=== PATIENT | male | born 1960 | race Caucasian/White ===

== ENCOUNTER → 2018-05-23 | Outpatient (CLI) | payer MEDICARE, OTHER ==
[~2018-05-23] MED LIST: AMLO-512 PO; BENZ2TAB58 PO; DIVA500T52 PO; HALO50AM2 IM; OLAN5TAB2 PO
[2018-05-24 09:43] LABS: HEMOGLOBIN A1C 5.7 % (4.5-6.2)
[2018-05-24 09:56] LABS: CHOL/HDL RATIO 3.3 (4.2-7.3)
== END | disposition home or self-care (01) ==
LOC: LABMN 09:05
PROVIDERS: ATTEND Psychiatry & Neurology Psychiatry
DX: F20.0 Paranoid schizophrenia (principal); I10 Essential (primary) hypertension; J44.9 Chronic obstructive pulmonary disease, unspecified; F31.9 Bipolar disorder, unspecified; Z87.891 Personal history of nicotine dependence; Z72.89 Other problems related to lifestyle; Z79.899 Other long term (current) drug therapy
CPT/HCPCS: 82947; 83036

== ENCOUNTER → 2018-07-02 | Outpatient (CLI) | payer MEDICARE, OTHER | END | disposition home or self-care (01) | LOC: LABMN 13:16 | PROVIDERS: ATTEND Psychiatry & Neurology Psychiatry | DX: F20.9 Schizophrenia, unspecified (principal); Z79.899 Other long term (current) drug therapy | CPT/HCPCS: 83036 ==

== ENCOUNTER → 2019-01-16 | Outpatient (CLI) | payer MEDICARE, OTHER ==
[~2019-01-16] MED LIST changes: -AMLO-512 PO; +AMLO10TA7 PO
== END | disposition home or self-care (01) ==
LOC: LABMN 13:00
PROVIDERS: ATTEND Psychiatry & Neurology Psychiatry
DX: F20.9 Schizophrenia, unspecified (principal); I10 Essential (primary) hypertension
CPT/HCPCS: 80173

== ENCOUNTER 2022-03-02 21:49 | Inpatient (IN) | payer MEDICARE, MEDICAID ==
[~2022-03-02] VITALS: Ht 175.3 cm; Wt 73.9 kg
[~2022-03-02 21:49] MED LIST changes: +AMLO-258 PO; -AMLO10TA7 PO; +DIVA-80 PO; -DIVA500T52 PO; -OLAN5TAB2 PO; +OLAN5TAB52 PO
[2022-03-02 23:26] LABS: GLUCOMETER DEV NAME(LOC) POC.BV
[2022-03-03] MEDS ORDERED: ZOLPIDEM TARTRATE 10 MG TABLET PO PRN
[2022-03-03] MEDS ORDERED: LORazepam 2 MG TABLET PO PRN
[2022-03-03] MEDS ORDERED: QUEtiapine FUMARATE 100 MG TABLET PO PRN
[2022-03-03 00:25] VITALS: BP 128/78
[2022-03-03 07:02] LABS: BASOPHILS % (AUTO) 0.7 % (0.0-2.0); EOSINOPHILS % (AUTO) 4.9 % (1.0-6.0); HEMATOCRIT 40.2 % (41-53); HEMOGLOBIN 13.3 g/dL (13.5-17.5); LYMPHOCYTES # (AUTO) 1.4 K/uL (1.0-4.8); MEAN CORPUSCULAR HEMOGLOBIN 27.7 pg (26.0-34.0); MEAN CORPUSCULAR HGB CONC 33.1 G/dL (31.0-37.0); MEAN CORPUSCULAR VOLUME 84 fL (80-100); MONOCYTES # (AUTO) 0.5 K/uL (0.1-1.0); MONOCYTES % (AUTO) 9.3 % (2.0-9.0); NEUTROPHILS % (AUTO) 58.1 % (40.0-70.0); PLATELET COUNT (AUTO) 190 K/uL (150-450); RED BLOOD CELL COUNT(AUTO) 4.81 MIL/uL (4.50-5.90); RED CELL DISTRIBUTION WIDTH 17.4 % (11.5-14.5)
[2022-03-03 07:36] LABS: ALANINE AMINOTRANSFERASE 34 U/L (12-78); ALBUMIN 3.4 g/dL (3.4-5.0); ALKALINE PHOSPHATASE 66 U/L (46-116); ANION GAP 3 mmol/L (8-16); ASPARTATE AMINOTRANSFERASE 33 U/L (15-37); BILIRUBIN,TOTAL 0.8 mg/dL (0.1-1.0); CALCIUM, TOTAL 8.7 mg/dL (8.8-10.5); CARBON DIOXIDE 32 mmol/L (22-29); CHLORIDE 106 mmol/L (98-107); CHOL/HDL RATIO 2.1 (4.2-7.3); CHOLESTEROL 110 mg/dL (131-200); CREATININE 0.81 mg/dL (0.60-1.30); FREE T4 (FREE THYROXINE) 1.05 ng/dL (0.76-1.46); GLUCOSE,RANDOM 100 mg/dL (70-110); HDL CHOLESTEROL 52 mg/dL (40-60); LDL CHOL (CALC.) 51 mg/dL (0-130); POTASSIUM 3.4 mmol/L (3.5-5.1); SODIUM SERUM 141 mmol/L (136-145); THYROID STIMULATING HORMONE 1.83 uIU/mL (0.36-3.74); TOTAL PROTEIN, SERUM 6.3 g/dL (6.4-8.2); TRIGLYCERIDES 35 mg/dL (15-150); UREA NITROGEN, BLOOD 17 mg/dL (7-18)
[2022-03-03 07:40] LABS: GLOMERULAR FILTR. RATE CALC > 60 mL/min (>60)
[2022-03-03 07:42] LABS: HEMOGLOBIN A1C 6.1 % (3.8-5.6)
[2022-03-03 08:58] VITALS: BP 131/64
[2022-03-03] MEDS ORDERED: POTASSIUM CHLORIDE 20 MEQ ER TABLET PO ONE (13:45)
[2022-03-03 22:41] VITALS: BP 117/67
[2022-03-04 09:00] VITALS: BP 128/71
[2022-03-04 20:38] VITALS: BP 143/72
[2022-03-05 08:38] VITALS: BP 118/71
[2022-03-05] MEDS ORDERED: TUBERCULIN, PURIFIED PROTEIN DERIVATIVE 5 TU/0.1 ML SYRINGE ID ONE (10:00)
[2022-03-05] MEDS ORDERED: OLANZapine 5 MG RAPDIS TABLET PO PRN (10:00)
[2022-03-05] MEDS ORDERED: MAG HYDROX/AL HYDROX/SIMETH ES 30 ML SUSPENSION UDCUP PO PRN (10:00)
[2022-03-05] MEDS ORDERED: MAGNESIUM HYDROXIDE SUSPENSION 30 ML UDCUP PO PRN (10:00)
[2022-03-05] MEDS ORDERED: ACETAMINOPHEN 325 MG TABLET PO PRN (10:00)
[2022-03-05] MEDS ORDERED: GuaiFENesin/D-METHORPHAN [SUGAR-FREE] 200-20MG/10 ML SYRUP UDCUP PO PRN (10:00)
[2022-03-05] MEDS ORDERED: PROMETHAZINE HCL 25 MG TABLET PO PRN (10:00)
[2022-03-05] MEDS ORDERED: LOPERAMIDE HCL 2 MG CAPSULE PO PRN ×2 (10:00)
[2022-03-05] MEDS ORDERED: HydrOXYzine PAMOATE 50 MG CAPSULE PO PRN (10:00)
[2022-03-05] MEDS ORDERED: HALOPERIDOL DECANOATE 100 MG/ML VIAL IM ONE (10:00)
[2022-03-05] MEDS: BENZTROPINE MESYLATE 2 MG TABLET PO SCH ×2 (12:40→16:45)
[2022-03-05 16:12] VITALS: BP 114/61
[2022-03-05] MEDS: THIAMINE 100 MG TABLET PO SCH (16:45)
[2022-03-05 20:14] VITALS: BP 114/61
[2022-03-05] MEDS: MELATONIN 5 MG TABLET PO SCH (20:14)
[2022-03-05] MEDS: DIVALPROEX SODIUM 500 MG ER TABLET PO SCH (20:14)
[2022-03-05] MEDS ORDERED: OLANZapine 5 MG RAPDIS TABLET PO SCH (21:00)
[2022-03-06 05:23] VITALS: BP 124/62
[2022-03-06] MEDS: BENZTROPINE MESYLATE 2 MG TABLET PO SCH ×3 (08:50→16:26)
[2022-03-06] MEDS: FOLIC ACID 1 MG TABLET PO SCH (08:50)
[2022-03-06] MEDS: THIAMINE 100 MG TABLET PO SCH ×2 (08:50→16:26)
[2022-03-06] MEDS: NALTREXONE HCL 50 MG TABLET PO SCH (08:50)
[2022-03-06] MEDS: OMEGA-3/DHA/EPA/FISH OIL 1,000 MG CAPSULE PO SCH (08:50)
[2022-03-06 08:51] VITALS: BP 139/67
[2022-03-06 08:52] VITALS: BP 139/67
[2022-03-06] MEDS: DIVALPROEX SODIUM 500 MG ER TABLET PO SCH (20:09)
[2022-03-06] MEDS: MELATONIN 5 MG TABLET PO SCH (20:09)
[2022-03-06] MEDS: OLANZapine 10 MG RAPDIS TABLET PO SCH (20:10)
[2022-03-06 20:38] VITALS: BP 113/64
[2022-03-07 08:12] VITALS: BP 132/65
[2022-03-07 09:06] LABS: GLUCOMETER DEV NAME(LOC) POC.BV
[2022-03-07] MEDS: OMEGA-3/DHA/EPA/FISH OIL 1,000 MG CAPSULE PO SCH (09:15)
[2022-03-07] MEDS: NALTREXONE HCL 50 MG TABLET PO SCH (09:15)
[2022-03-07] MEDS: THIAMINE 100 MG TABLET PO SCH ×2 (09:15→16:22)
[2022-03-07] MEDS: FOLIC ACID 1 MG TABLET PO SCH (09:15)
[2022-03-07] MEDS: BENZTROPINE MESYLATE 2 MG TABLET PO SCH ×3 (09:15→16:22)
[2022-03-07 10:31] VITALS: BP 132/65
[2022-03-07] MEDS ORDERED: HALOPERIDOL DECANOATE 100 MG/ML VIAL IM ONE (14:45)
[2022-03-07] MEDS: DIVALPROEX SODIUM 500 MG ER TABLET PO SCH (20:13)
[2022-03-07] MEDS: MELATONIN 5 MG TABLET PO SCH (20:13)
[2022-03-07] MEDS: OLANZapine 10 MG RAPDIS TABLET PO SCH (20:14)
[2022-03-07 20:32] VITALS: BP 138/69
[2022-03-08 02:11] VITALS: BP 138/69
[2022-03-08 04:32] VITALS: BP 135/71
[2022-03-08 08:05] VITALS: BP 126/88
[2022-03-08 08:08] VITALS: BP 125/77
[2022-03-08] MEDS: OMEGA-3/DHA/EPA/FISH OIL 1,000 MG CAPSULE PO SCH (09:31)
[2022-03-08] MEDS: BENZTROPINE MESYLATE 2 MG TABLET PO SCH ×3 (09:31→16:23)
[2022-03-08] MEDS: THIAMINE 100 MG TABLET PO SCH ×2 (09:31→16:23)
[2022-03-08] MEDS: NALTREXONE HCL 50 MG TABLET PO SCH (09:32)
[2022-03-08] MEDS: FOLIC ACID 1 MG TABLET PO SCH (09:32)
[2022-03-08] MEDS ORDERED: HALOPERIDOL DECANOATE 100 MG/ML VIAL IM ONE (14:30)
[2022-03-08] MEDS: DIVALPROEX SODIUM 500 MG ER TABLET PO SCH (20:31)
[2022-03-08] MEDS: OLANZapine 10 MG RAPDIS TABLET PO SCH (20:33)
[2022-03-08] MEDS: MELATONIN 5 MG TABLET PO SCH (20:33)
[2022-03-08 20:50] VITALS: BP 134/65
[2022-03-09] MEDS: NALTREXONE HCL 50 MG TABLET PO SCH (08:13)
[2022-03-09] MEDS: THIAMINE 100 MG TABLET PO SCH ×2 (08:13→16:36)
[2022-03-09] MEDS: FOLIC ACID 1 MG TABLET PO SCH (08:13)
[2022-03-09] MEDS: BENZTROPINE MESYLATE 2 MG TABLET PO SCH ×3 (08:13→16:36)
[2022-03-09] MEDS: OMEGA-3/DHA/EPA/FISH OIL 1,000 MG CAPSULE PO SCH (08:13)
[2022-03-09 08:43] VITALS: BP 108/69
[2022-03-09 20:08] VITALS: BP 145/68
[2022-03-09] MEDS: MELATONIN 5 MG TABLET PO SCH (20:18)
[2022-03-09] MEDS: DIVALPROEX SODIUM 500 MG ER TABLET PO SCH (20:18)
[2022-03-09] MEDS: OLANZapine 10 MG RAPDIS TABLET PO SCH (20:18)
[2022-03-10 04:13] VITALS: BP 138/76
[2022-03-10] MEDS: FOLIC ACID 1 MG TABLET PO SCH (08:38)
[2022-03-10] MEDS: THIAMINE 100 MG TABLET PO SCH ×2 (08:38→16:35)
[2022-03-10] MEDS: BENZTROPINE MESYLATE 2 MG TABLET PO SCH ×3 (08:38→16:35)
[2022-03-10] MEDS: NALTREXONE HCL 50 MG TABLET PO SCH (08:38)
[2022-03-10] MEDS: OMEGA-3/DHA/EPA/FISH OIL 1,000 MG CAPSULE PO SCH (08:38)
[2022-03-10 08:45] VITALS: BP 136/92
[2022-03-10] MEDS: OLANZapine 10 MG RAPDIS TABLET PO SCH (20:18)
[2022-03-10] MEDS: DIVALPROEX SODIUM 500 MG ER TABLET PO SCH (20:18)
[2022-03-10] MEDS: MELATONIN 5 MG TABLET PO SCH (20:18)
[2022-03-10 20:50] VITALS: BP 130/78
[2022-03-11 08:09] VITALS: BP 110/77
[2022-03-11] MEDS: OMEGA-3/DHA/EPA/FISH OIL 1,000 MG CAPSULE PO SCH (09:16)
[2022-03-11] MEDS: BENZTROPINE MESYLATE 2 MG TABLET PO SCH ×3 (09:16→17:45)
[2022-03-11] MEDS: THIAMINE 100 MG TABLET PO SCH ×2 (09:16→17:45)
[2022-03-11] MEDS: FOLIC ACID 1 MG TABLET PO SCH (09:16)
[2022-03-11] MEDS: NALTREXONE HCL 50 MG TABLET PO SCH (09:16)
[2022-03-11] MEDS: MELATONIN 5 MG TABLET PO SCH (20:01)
[2022-03-11] MEDS: DIVALPROEX SODIUM 500 MG ER TABLET PO SCH (20:01)
[2022-03-11] MEDS: OLANZapine 10 MG RAPDIS TABLET PO SCH (20:01)
[2022-03-11 20:41] VITALS: BP 110/70
[2022-03-12 09:01] VITALS: BP 127/67
[2022-03-12] MEDS: NALTREXONE HCL 50 MG TABLET PO SCH (09:49)
[2022-03-12] MEDS: OMEGA-3/DHA/EPA/FISH OIL 1,000 MG CAPSULE PO SCH (09:49)
[2022-03-12] MEDS: FOLIC ACID 1 MG TABLET PO SCH (09:49)
[2022-03-12] MEDS: THIAMINE 100 MG TABLET PO SCH ×2 (09:49→16:08)
[2022-03-12] MEDS: BENZTROPINE MESYLATE 2 MG TABLET PO SCH ×3 (10:42→16:08)
[2022-03-12] MEDS ORDERED: DIVA-80 PO (13:15)
[2022-03-12] MEDS ORDERED: BENZ2TAB76 PO (13:15)
[2022-03-12] MEDS ORDERED: MELA5TAB40 PO (13:15)
[2022-03-12] MEDS ORDERED: NALT50TA PO (13:15)
[2022-03-12] MEDS ORDERED: OMEG-135 PO (13:15)
[2022-03-12] MEDS ORDERED: OLAN10TA26 PO (13:15)
[2022-03-19] MEDS ORDERED: HALOPERIDOL DECANOATE 100 MG/ML VIAL IM SCH ×2 (09:00)
== END 2022-03-12 16:19 | disposition home or self-care (01) | DRG 885 ==
LOC: B2S 23:21
PROVIDERS: ADMIT Psychiatry & Neurology Psychiatry; ATTEND Psychiatry & Neurology Psychiatry
DX: F25.0 Schizoaffective disorder, bipolar type (principal); R45.851 Suicidal ideations; F41.9 Anxiety disorder, unspecified; Z20.822 Contact with and (suspected) exposure to COVID-19; I10 Essential (primary) hypertension; Z55.9 Problems related to education and literacy, unspecified; Z65.3 Problems related to other legal circumstances; Z59.00 Homelessness unspecified; Z63.9 Problem related to primary support group, unspecified; Z91.14 Patient's other noncompliance with medication regimen; Z91.199 Patient's noncompliance with other medical treatment and regimen due to unspecified reason; Z63.8 Other specified problems related to primary support group
CPT/HCPCS: 80053; 80061; 80164; 83036; 84439; 84443; 85025; 86592; J1631; Q9967

== ENCOUNTER → 2022-06-19 | Outpatient (CLI) | payer MEDICARE, MEDICAID ==
[~2022-06-19] MED LIST changes: -AMLO-258 PO; +BENZ2TAB76 PO; -DIVA-80 PO; +DIVA500T53 PO; -HALO50AM2 IM; +MELA5TAB40 PO; +NALT50TA PO; +OLAN10TA26 PO; -OLAN5TAB52 PO; +OMEG-135 PO
== END | disposition home or self-care (01) ==
LOC: LABMN 12:33
PROVIDERS: ATTEND Psychiatry & Neurology Psychiatry
DX: F25.0 Schizoaffective disorder, bipolar type (principal)
CPT/HCPCS: 80164; 80173

== ENCOUNTER → 2022-12-13 | Outpatient (CLI) | payer MEDICARE, MEDICAID ==
[~2022-12-13] MED LIST changes: +BENZ2TAB71 PO; -BENZ2TAB76 PO
== END | disposition home or self-care (01) ==
LOC: LABMN 13:48
PROVIDERS: ATTEND Psychiatry & Neurology Psychiatry
DX: F25.1 Schizoaffective disorder, depressive type (principal)
CPT/HCPCS: 80164

== ENCOUNTER → 2022-12-27 | Outpatient (CLI) | payer MEDICARE, MEDICAID | END | disposition home or self-care (01) | LOC: LABMN 10:30 | PROVIDERS: ATTEND Psychiatry & Neurology Psychiatry | DX: F25.0 Schizoaffective disorder, bipolar type (principal) | CPT/HCPCS: 80164 ==

== ENCOUNTER → 2023-08-29 | Outpatient (CLI) | payer MEDICARE, OTHER | END | disposition home or self-care (01) | LOC: LABMN 12:10 | PROVIDERS: ATTEND Psychiatry & Neurology Psychiatry | DX: F25.9 Schizoaffective disorder, unspecified (principal) | CPT/HCPCS: 80164; 36415-L1; 36415-TC ==

== ENCOUNTER → 2023-09-13 | Outpatient (CLI) | payer MEDICARE, OTHER ==
[~2023-09-13] MED LIST changes: -NALT50TA PO; +NALT50TA6 PO
[2023-09-13 15:03] LABS: CHOL/HDL RATIO 2.4 (4.2-7.3)
[2023-09-13 15:14] LABS: HEMOGLOBIN A1C 5.8 % (3.8-5.6)
== END | disposition home or self-care (01) ==
LOC: LABMN 11:55
PROVIDERS: ATTEND Psychiatry & Neurology Psychiatry
DX: F25.1 Schizoaffective disorder, depressive type (principal); Z79.899 Other long term (current) drug therapy
CPT/HCPCS: 80061; 82947; 83036